=== PATIENT | female | born 1955 | race Caucasian/White ===

== ENCOUNTER 2017-10-15 19:02 | Emergency (ER) | payer BC ==
[2017-10-15 19:13] VITALS: BP 115/68
[2017-10-15] MEDS ORDERED: Oseltamivir CAP* 75 MG PO ONE (19:40)
--- NOTE | 2017-10-15 19:43 | UC ---
Respiratory Complaint HPI - HPI Summary HPI Summary: 62F hx of 2 days mild cough, rhinorrhea, general malaise with positive sick contacts. No neck pain, no headache. Suspects may be flu. - History of Current Complaint Chief Complaint: UCRespiratory Stated Complaint: FLU SYMPTOMS Time Seen by Provider: 10/15/17 19:21 - Allergies/Home Medications Allergies/Adverse Reactions: Allergies Allergy/AdvReac Type Severity Reaction Status Date / Time Ethanol [From Paregoric] Allergy Unknown Verified 10/15/17 19:21 Reaction Details Opium [From Paregoric] Allergy Unknown Verified 10/15/17 19:21 Reaction Details PMH/Surg Hx/FS Hx/Imm Hx Previously Healthy: Yes Other History Of: Negative For: Anticoagulant Therapy - Surgical History Surgical History: Yes Surgery Procedure, Year, and Place: eye surgery - Social History Alcohol Use: None Substance Use Type: None Smoking Status (MU): Never Smoked Tobacco - Immunization History Most Recent Influenza Vaccination: none Review of Systems Constitutional: Negative, Fatigue Skin: Negative ENT: Sore Throat Respiratory: Cough Cardiovascular: Negative Gastrointestinal: Negative Motor: Negative Musculoskeletal: Negative Is Patient Immunocompromised?: No All Other Systems Reviewed And Are Negative: Yes Physical Exam Triage Information Reviewed: Yes Appearance: Well-Appearing, No Pain Distress Vital Signs: Initial Vital Signs Temp 37.5 C 10/15/17 19:08 Pulse 77 10/15/17 19:08 Resp 18 10/15/17 19:08 BP 115/68 10/15/17 19:08 Pulse Ox 98 10/15/17 19:08 Neck exam: Normal Respiratory Exam: Normal Neurological Exam: Normal Skin Exam: Normal UC Diagnostic Evaluation - Laboratory O2 Sat by Pulse Oximetry: 98 Respiratory Course/Dx - Course Course Of Treatment: flu positive for fluA, neg for fluB, started on tamiflu, instructed to fu with pmd, agrees to and understands dc instrucitons - Differential Dx/Diagnosis Provider Diagnoses: influenza Discharge - Discharge Plan Condition: Stable Disposition: HOME Prescriptions: Oseltamivir CAP* [Tamiflu CAP*] 75 mg PO BID #10 cap Patient Education Materials: Influenza (ED) Referrals: Agustina Harris NP [Primary Care Provider] - Additional Instructions: please return for any worsening or concerning symptoms please make an appointment to be seen by your primary care doctor within 1 week
== END 2017-10-15 19:54 | disposition home or self-care (01) ==
LOC: UCEAST 19:02
DX: J11.1 Influenza due to unidentified influenza virus with other respiratory manifestations (principal)
CPT/HCPCS: 87502; 87651; 99212; A9270-GY; G0463